=== PATIENT | female | born 1935 | race Caucasian/White ===

== ENCOUNTER 2019-09-25 15:05 | Inpatient (IN) | payer MEDICARE, OTHER ==
[~2019-09-25] VITALS: Ht 167.6 cm; Wt 58.1 kg
[2019-09-25] MEDS ORDERED: AMLO5TAB9 PO (15:30)
[2019-09-25] MEDS ORDERED: QUET25TA PO (15:30)
[2019-09-25] MEDS ORDERED: CEFU500T66 PO (15:30)
[2019-09-25] MEDS ORDERED: DIAZ5TAB4 PO (15:34)
[2019-09-25] MEDS ORDERED: LITH150C PO (15:34)
[2019-09-25] MEDS ORDERED: LEVO150T8 PO (15:34)
[2019-09-25] MEDS ORDERED: ATOR10TA PO (15:34)
[2019-09-25] MEDS ORDERED: FURO20TA4 PO (15:34)
[2019-09-25] MEDS ORDERED: LOSA50TA39 PO (15:34)
--- NOTE | 2019-09-25 15:39 | NUR ---
DR. CARVALHO MADE AWARE OF THE ADMISSION AND WITH ORDERS.
[2019-09-25 16:00] VITALS: BP 102/68
[2019-09-25] MEDS ORDERED: TEMAZEPAM 7.5 MG CAPSULE PO PRN (16:00)
[2019-09-25] MEDS ORDERED: MAGNESIUM HYDROXIDE 30 ML UDC PO PRN (16:00)
[2019-09-25] MEDS ORDERED: MAG HYDROX/AL HYDROX/SIMETH 30 ML UDC PO PRN (16:00)
[2019-09-25] MEDS ORDERED: ACETAMINOPHEN 325 MG TABLET PO PRN (16:00)
[2019-09-25] MEDS ORDERED: BLOOD SUGAR DIAGNOSTIC 1 EACH STRIP IN ONE (16:00)
[2019-09-25] MEDS ORDERED: LORAZEPAM 0.5 MG TABLET PO PRN (16:00)
[2019-09-25 18:43] VITALS: BP 102/68
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
[2019-09-25] MEDS: LITHIUM CARBONATE 150 MG CAPSULE PO SCH (19:24)
--- NOTE | 2019-09-25 19:39 | NUR ---
GPS RN NOTE RECEIVED PATIENT SITTING IN BED. A & O X 2. NO ACUTE DISTRESS, NO C/O PAIN VERBALIZED AT THIS TIME. DENIES SI/HI/AVH AT THIS TIME. WILL CONTINUE TO MONITOR FOR SAFETY & BEHAVIOR.
--- NOTE | 2019-09-25 20:13 | NUR ---
GPS/RN NOTE: PHARMACISTGEORGIANA CALLED TO NOTIFY THAT [facility] IS NOT AVAILABLE. WILL FOLLOW-UP DAVID.
[2019-09-25 20:16] VITALS: BP 120/50
[2019-09-25] MEDS: CEPHALEXIN MONOHYDRATE 500 MG CAPSULE PO SCH (21:46)
[2019-09-25] MEDS: OLANZAPINE 2.5 MG TABLET PO SCH (21:46)
[2019-09-25] MEDS ORDERED: ATORVASTATIN 10 MG TABLET ONE (21:51)
[2019-09-25] MEDS: ATORVASTATIN 10 MG TABLET PO SCH (21:57)
--- NOTE | 2019-09-26 06:48 | NUR ---
GPS RN CLOSING NOTE PATIENT SLEPT 7 HOURS, NO ACUTE DISTRESS NOTED. A & O X 1, CONFUSED. HAD BM X 2 IN BED & TOILET. SAFETY MEASURES IN PLACE. WILL ENDORSE TO AM RN TO COLLECT URINE & STOOL FOR C.DIFF & CONTINUE TO MONITOR FOR SAFETY & BEHAVIOR.
[2019-09-26 07:29] LABS: BASOPHILS # (AUTO) 0.1 /CMM (0.0-0.2); BASOPHILS % (AUTO) 0.6 % (0.0-2.0); EOSINOPHILS % (AUTO) 0.9 % (0.0-6.0); HEMATOCRIT 39 % (33-45); HEMOGLOBIN 12.5 g/dL (11.5-14.8); LYMPHOCYTES # (AUTO) 0.1 /CMM (0.8-4.8); LYMPHOCYTES % (AUTO) 1.2 % (20.0-44.0); MEAN CORPUSCULAR HGB CONC 32 g/dl (31.0-36.0); MEAN CORPUSCULAR VOLUME 94 fL (82-100); MONOCYTES # (AUTO) 0.5 /CMM (0.1-1.30); MONOCYTES % (AUTO) 3.6 % (2.0-12.0); NEUTROPHILS # (AUTO) 11.8 /CMM (1.8-8.9); NEUTROPHILS % (AUTO) 93.7 % (43.0-81.0); PLATELET COUNT (AUTO) 184 /CMM (150-450); RED BLOOD CELL COUNT(AUTO) 4.19 MIL/uL (4.0-5.2); WHITE BLOOD COUNT (AUTO) 12.6 K/uL (4.3-11.0)
[2019-09-26 07:39] LABS: ALANINE AMINOTRANSFERASE 18 U/L (12-78); ALBUMIN 3.4 g/dL (3.4-5.0); ALKALINE PHOSPHATASE 56 U/L (46-116); ASPARTATE AMINOTRANSFERASE 25 U/L (15-37); BILIRUBIN,TOTAL 0.5 mg/dL (0.2-1.0); CALCIUM, SERUM 9.6 mg/dL (8.5-10.1); CARBON DIOXIDE 23 mmol/L (21-32); CHLORIDE 105 mmol/L (98-107); CREATININE 1.7 mg/dL (0.6-1.3); GLUCOSE 147 mg/dL (74-106); POTASSIUM 4.2 mmol/L (3.5-5.1); SODIUM SERUM 140 mmol/L (136-145); TOTAL PROTEIN, SERUM 6.5 g/dL (6.4-8.2); UREA NITROGEN, BLOOD 40 mg/dL (7-18)
[2019-09-26 07:41] LABS: CHOLESTEROL 148 mg/dL (<200); HDL CHOLESTEROL 60 mg/dL (40-60); LDL 68 mg/dL (0-99); TRIGLYCERIDES 106 mg/dL (30-150)
[2019-09-26 08:00] VITALS: BP 90/59
[2019-09-26] MEDS: LEVOTHYROXINE SODIUM 75 MCG TABLET PO SCH (08:47)
[2019-09-26] MEDS: CEPHALEXIN MONOHYDRATE 500 MG CAPSULE PO SCH ×2 (08:47→21:20)
[2019-09-26] MEDS: LITHIUM CARBONATE 150 MG CAPSULE PO SCH ×2 (08:47→16:49)
[2019-09-26] MEDS: LOSARTAN POTASSIUM 50 MG TABLET PO SCH (08:47)
[2019-09-26] MEDS: AMLODIPINE BESYLATE 5 MG TABLET PO SCH (08:48)
[2019-09-26] MEDS: NICOTINE PATCH (14MG) 14 MG PATCH.TD24 TD SCH (08:53)
[2019-09-26] MEDS ORDERED: FUROSEMIDE 20 MG TABLET PO SCH (09:00)
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
--- NOTE | 2019-09-26 12:04 | NUR ---
Family Contact: SW called the pts daughter, Holly ([phone]), but an access code was required that the SW did not have.
--- NOTE | 2019-09-26 14:29 | NUR ---
Initial Discharge Plan: Pt currently resides in her home located at [address] [place] [address]; ([phone]) with her daughter, Holly ([phone]). Per pt, she would like to return to her home. SW will work with the pt and the MD regarding appropriate discharge planning. SW will form a safe and proper discharge.
[2019-09-26] MEDS: POVIDONE-IODINE OINT 28.4 GM TUBE TP SCH (14:33)
[2019-09-26 16:00] VITALS: BP 98/59
--- NOTE | 2019-09-26 16:00 | NUR ---
CARE TRANSFERRED TO DORIE MAGANA FROM REGISTRY
--- NOTE | 2019-09-26 19:10 | NUR ---
GPS RN NOTES RECEIVED PT IN BED AWAKE, NO S/S OR COMPLAINTS OF PAIN AT THIS TIME. RESPIRATIONS EVEN AND UNLABORED WITH NO S/S OF ACUTE DISTRESS OR SOB NOTED. PT A/O X1 . PT DENIES SI/HI AT THIS TIME. SAFETY MEASURES IN PLACE WITH BED IN LOWEST LOCKED POSITION WITH SIDE RAILS UP X2. CALL KHAN WITHIN REACH. WILL CONTINUE TO MONITOR.
[2019-09-26 20:47] VITALS: BP 90/46
[2019-09-26] MEDS: ATORVASTATIN 10 MG TABLET PO SCH (21:20)
[2019-09-26] MEDS: OLANZAPINE 2.5 MG TABLET PO SCH (21:20)
[2019-09-27 06:27] LABS: APPEARANCE,URINE SL CLOUDY (CLEAR); BILIRUBIN,URINE NEGATIVE (NEGATIVE); BLOOD, URINE NEGATIVE Ery/uL (NEGATIVE); COLOR,URINE YELLOW (YELLOW); KETONES,URINE NEGATIVE (NEGATIVE); LEUKOCYTE ESTERASE ,URINE NEGATIVE (NEGATIVE); NITRITE, URINE NEGATIVE (NEGATIVE); PH,URINE 5.5 (5.0-8.0); PROTEIN,URINE NEGATIVE (NEGATIVE); UGLUCOSE NEGATIVE (NEGATIVE); UROBILINOGEN,URINE 0.2 EU/dL (0.2)
--- NOTE | 2019-09-27 07:07 | NUR ---
GPS RN NOTES PT IN BED AWAKE, NO S/S OR COMPLAINTS OF PAIN AT THIS TIME. RESPIRATIONS EVEN AND UNLABORED WITH NO S/S OF ACUTE DISTRESS OR SOB NOTED. PT A/O X1 . PT DENIES SI/HI AT THIS TIME. SAFETY MEASURES IN PLACE WITH BED IN LOWEST LOCKED POSITION WITH SIDE RAILS UP X2. CALL KHAN WITHIN REACH. WILL ENDORSE TO ONCOMING NURSE FOR DWAIN.
[2019-09-27 07:32] LABS: BASOPHILS % (AUTO) 0.4 % (0.0-2.0); EOSINOPHILS % (AUTO) 4.2 % (0.0-6.0); HEMATOCRIT 41 % (33-45); HEMOGLOBIN 13.4 g/dL (11.5-14.8); LYMPHOCYTES # (AUTO) 0.3 /CMM (0.8-4.8); LYMPHOCYTES % (AUTO) 2.2 % (20.0-44.0); MEAN CORPUSCULAR HGB CONC 33 g/dl (31.0-36.0); MEAN CORPUSCULAR VOLUME 93 fL (82-100); MONOCYTES # (AUTO) 0.4 /CMM (0.1-1.30); MONOCYTES % (AUTO) 3.1 % (2.0-12.0); NEUTROPHILS # (AUTO) 10.9 /CMM (1.8-8.9); NEUTROPHILS % (AUTO) 90.1 % (43.0-81.0); PLATELET COUNT (AUTO) 197 /CMM (150-450); RED BLOOD CELL COUNT(AUTO) 4.41 MIL/uL (4.0-5.2); WHITE BLOOD COUNT (AUTO) 12.1 K/uL (4.3-11.0)
[2019-09-27 08:00] VITALS: BP 90/58
[2019-09-27 08:02] LABS: PHOSPHORUS 3.6 mg/dL (2.5-4.9)
[2019-09-27] MEDS: LOSARTAN POTASSIUM 50 MG TABLET PO SCH (09:00)
[2019-09-27] MEDS: AMLODIPINE BESYLATE 5 MG TABLET PO SCH (09:00)
[2019-09-27] MEDS: NICOTINE PATCH (14MG) 14 MG PATCH.TD24 TD SCH (09:35)
[2019-09-27] MEDS: CEPHALEXIN MONOHYDRATE 500 MG CAPSULE PO SCH ×2 (09:36→21:01)
[2019-09-27] MEDS: LITHIUM CARBONATE 150 MG CAPSULE PO SCH (09:36)
[2019-09-27] MEDS: LEVOTHYROXINE SODIUM 75 MCG TABLET PO SCH (09:36)
--- NOTE | 2019-09-27 12:10 | NUR ---
NO BETADINE APPLIED TO RT. [facility] HASN'T SUPPLIED IT.CALLED SEVERAL TIMES.
[2019-09-27 13:30] LABS: CALCIUM, SERUM 9.6 mg/dL (8.5-10.1); CARBON DIOXIDE 21 mmol/L (21-32); CHLORIDE 100 mmol/L (98-107); CREATININE 2.5 mg/dL (0.6-1.3); GLUCOSE 102 mg/dL (74-106); POTASSIUM 4.3 mmol/L (3.5-5.1); SODIUM SERUM 136 mmol/L (136-145); UREA NITROGEN, BLOOD 59 mg/dL (7-18)
[2019-09-27] MEDS: POVIDONE-IODINE OINT 28.4 GM TUBE TP SCH (14:50)
--- NOTE | 2019-09-27 15:48 | NUR ---
STAYING IN ROOM MOST OF DAY.
[2019-09-27 16:00] VITALS: BP 109/59
[2019-09-27 20:17] VITALS: BP 102/52
[2019-09-27] MEDS: ATORVASTATIN 10 MG TABLET PO SCH (21:01)
[2019-09-27] MEDS: OLANZAPINE 2.5 MG TABLET PO SCH (21:01)
[2019-09-28] MEDS: LEVOTHYROXINE SODIUM 75 MCG TABLET PO SCH (07:50)
[2019-09-28 08:00] VITALS: BP 99/79
[2019-09-28] MEDS: LOSARTAN POTASSIUM 50 MG TABLET PO SCH (08:26)
[2019-09-28] MEDS: AMLODIPINE BESYLATE 5 MG TABLET PO SCH (08:26)
[2019-09-28] MEDS: CEPHALEXIN MONOHYDRATE 500 MG CAPSULE PO SCH ×2 (08:41→21:09)
[2019-09-28] MEDS: NICOTINE PATCH (14MG) 14 MG PATCH.TD24 TD SCH (08:41)
[2019-09-28] MEDS: POVIDONE-IODINE OINT 28.4 GM TUBE TP SCH (08:47)
[2019-09-28 09:37] LABS: BASOPHILS % (AUTO) 0.2 % (0.0-2.0); EOSINOPHILS % (AUTO) 9.4 % (0.0-6.0); HEMATOCRIT 40 % (33-45); HEMOGLOBIN 13.1 g/dL (11.5-14.8); LYMPHOCYTES # (AUTO) 0.8 /CMM (0.8-4.8); LYMPHOCYTES % (AUTO) 9.9 % (20.0-44.0); MEAN CORPUSCULAR HGB CONC 33 g/dl (31.0-36.0); MEAN CORPUSCULAR VOLUME 93 fL (82-100); MONOCYTES # (AUTO) 0.4 /CMM (0.1-1.30); MONOCYTES % (AUTO) 5.1 % (2.0-12.0); NEUTROPHILS # (AUTO) 6.2 /CMM (1.8-8.9); NEUTROPHILS % (AUTO) 75.4 % (43.0-81.0); PLATELET COUNT (AUTO) 173 /CMM (150-450); RED BLOOD CELL COUNT(AUTO) 4.33 MIL/uL (4.0-5.2); WHITE BLOOD COUNT (AUTO) 8.2 K/uL (4.3-11.0)
[2019-09-28 10:06] LABS: ALANINE AMINOTRANSFERASE 21 U/L (12-78); ALBUMIN 3.3 g/dL (3.4-5.0); ALKALINE PHOSPHATASE 55 U/L (46-116); ASPARTATE AMINOTRANSFERASE 19 U/L (15-37); BILIRUBIN,TOTAL 0.4 mg/dL (0.2-1.0); CALCIUM, SERUM 9.6 mg/dL (8.5-10.1); CARBON DIOXIDE 26 mmol/L (21-32); CHLORIDE 101 mmol/L (98-107); GLUCOSE 131 mg/dL (74-106); POTASSIUM 3.9 mmol/L (3.5-5.1); SODIUM SERUM 136 mmol/L (136-145); TOTAL PROTEIN, SERUM 6.7 g/dL (6.4-8.2); UREA NITROGEN, BLOOD 60 mg/dL (7-18)
[2019-09-28 16:00] VITALS: BP 121/81
[2019-09-28 20:40] VITALS: BP 160/69
[2019-09-28] MEDS: OLANZAPINE 2.5 MG TABLET PO SCH (21:09)
[2019-09-28] MEDS: ATORVASTATIN 10 MG TABLET PO SCH (21:10)
[2019-09-28 22:51] VITALS: BP 137/59
[2019-09-29 08:00] VITALS: BP 137/58
[2019-09-29 08:12] LABS: CALCIUM, SERUM 10.4 mg/dL (8.5-10.1); CARBON DIOXIDE 25 mmol/L (21-32); CHLORIDE 101 mmol/L (98-107); CREATININE 1.6 mg/dL (0.6-1.3); GLUCOSE 104 mg/dL (74-106); POTASSIUM 3.5 mmol/L (3.5-5.1); SODIUM SERUM 136 mmol/L (136-145); UREA NITROGEN, BLOOD 47 mg/dL (7-18)
[2019-09-29] MEDS: LEVOTHYROXINE SODIUM 75 MCG TABLET PO SCH (08:26)
[2019-09-29] MEDS: CEPHALEXIN MONOHYDRATE 500 MG CAPSULE PO SCH (08:27)
[2019-09-29] MEDS: AMLODIPINE BESYLATE 5 MG TABLET PO SCH (08:27)
[2019-09-29] MEDS: LOSARTAN POTASSIUM 50 MG TABLET PO SCH (08:27)
[2019-09-29] MEDS: POVIDONE-IODINE OINT 28.4 GM TUBE TP SCH (08:27)
[2019-09-29] MEDS: NICOTINE PATCH (14MG) 14 MG PATCH.TD24 TD SCH (08:27)
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
--- NOTE | 2019-09-29 12:08 | NUR ---
Family Contact: SW called the pts sister, Jannie ([phone]), but the voicemail mailbox was not set up so the SW was unable to leave a message.
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
[2019-09-29 13:47] LABS: BASOPHILS % (AUTO) 0.7 % (0.0-2.0); HEMATOCRIT 42 % (33-45); HEMOGLOBIN 13.6 g/dL (11.5-14.8); LYMPHOCYTES # (AUTO) 0.9 /CMM (0.8-4.8); LYMPHOCYTES % (AUTO) 13.9 % (20.0-44.0); MEAN CORPUSCULAR HGB CONC 33 g/dl (31.0-36.0); MEAN CORPUSCULAR VOLUME 93 fL (82-100); MONOCYTES # (AUTO) 0.4 /CMM (0.1-1.30); MONOCYTES % (AUTO) 6.2 % (2.0-12.0); NEUTROPHILS # (AUTO) 4.4 /CMM (1.8-8.9); NEUTROPHILS % (AUTO) 70.2 % (43.0-81.0); PLATELET COUNT (AUTO) 181 /CMM (150-450); WHITE BLOOD COUNT (AUTO) 6.2 K/uL (4.3-11.0)
[2019-09-29] MEDS: LEVOFLOXACIN (500MG) 500 MG TABLET PO SCH (15:55)
[2019-09-29 16:04] VITALS: BP 138/63
--- NOTE | 2019-09-29 16:06 | NUR ---
GROUP NOTE: SW encouraged pt to attend group on this present day discussing "discharge planning." Pt refused to attend stating she was on the phone. Pt was laying in bed with her legs crossed talking on the phone.
--- NOTE | 2019-09-29 16:17 | NUR ---
APS Contact: ADRIEL faxed an APS SOC 341 Form with attention to Earl Vasques was faxed to: [phone].
[2019-09-29] MEDS ORDERED: FIXODENT 1 EA TUBE MM ONE (16:30)
--- NOTE | 2019-09-29 19:50 | NUR ---
PT WAS RECEIVED FR THE MORNING SHIFT, PT IS IN THE HALLWAY WHEN RECEIVED, NO S/S AND C/O OF PAIN AND DISCOMFORT, CONTINUE TO MONITOR PT THROUGHOUT THE SHIFTY.
[2019-09-29 20:20] VITALS: BP 137/55
[2019-09-29] MEDS: OLANZAPINE 2.5 MG TABLET PO SCH (21:46)
[2019-09-29] MEDS: ATORVASTATIN 10 MG TABLET PO SCH (21:46)
[2019-09-30] MEDS: LEVOTHYROXINE SODIUM 75 MCG TABLET PO SCH (07:48)
[2019-09-30 08:00] VITALS: BP 156/57
[2019-09-30] MEDS: LOSARTAN POTASSIUM 50 MG TABLET PO SCH (08:09)
[2019-09-30] MEDS: AMLODIPINE BESYLATE 5 MG TABLET PO SCH (08:10)
[2019-09-30] MEDS: NICOTINE PATCH (14MG) 14 MG PATCH.TD24 TD SCH (08:15)
[2019-09-30] MEDS: POVIDONE-IODINE OINT 28.4 GM TUBE TP SCH (08:48)
[2019-09-30 09:07] LABS: *SPE ALBUMIN 3.3 g/dL (2.9-4.4); *SPE ALPHA-1-GLOBULIN 0.3 g/dL (0.0-0.4); *SPE GLOBULIN, TOTAL 3.3 g/dL (2.2-3.9); *SPE M-SPIKE Not Observed g/dL (Not Observed); *SPEGAMMA GLOBULIN 0.9 g/dL (0.4-1.8)
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
[2019-09-30 12:06] LABS: PTH, INTACT 135 pg/mL (15-65)
[2019-09-30 14:34] LABS: APPEARANCE,URINE CLEAR (CLEAR); BILIRUBIN,URINE NEGATIVE (NEGATIVE); BLOOD, URINE NEGATIVE Ery/uL (NEGATIVE); COLOR,URINE YELLOW (YELLOW); KETONES,URINE NEGATIVE (NEGATIVE); LEUKOCYTE ESTERASE ,URINE NEGATIVE (NEGATIVE); NITRITE, URINE NEGATIVE (NEGATIVE); PH,URINE 5.5 (5.0-8.0); PROTEIN,URINE NEGATIVE (NEGATIVE); UGLUCOSE NEGATIVE (NEGATIVE); UROBILINOGEN,URINE 0.2 EU/dL (0.2)
[2019-09-30 14:45] LABS: CREATININE, URINE 99.3 MG/DL (30.0-125.0); URINE TOTAL PROTEIN 27.4 mg/dL (0-11.9)
[2019-09-30 15:03] LABS: EOSINOPHIL,URINE Few
[2019-09-30] MEDS: LEVOFLOXACIN (500MG) 500 MG TABLET PO SCH (15:45)
[2019-09-30 16:00] VITALS: BP 107/51
[2019-09-30 20:24] VITALS: BP 133/53
[2019-09-30] MEDS: OLANZAPINE 2.5 MG TABLET PO SCH (21:17)
[2019-09-30] MEDS: ATORVASTATIN 10 MG TABLET PO SCH (21:17)
[2019-10-01] MEDS: LEVOTHYROXINE SODIUM 75 MCG TABLET PO SCH (07:51)
[2019-10-01 08:00] VITALS: BP 114/65
[2019-10-01] MEDS: LOSARTAN POTASSIUM 50 MG TABLET PO SCH (08:55)
[2019-10-01] MEDS: AMLODIPINE BESYLATE 5 MG TABLET PO SCH (08:56)
[2019-10-01] MEDS: NICOTINE PATCH (14MG) 14 MG PATCH.TD24 TD SCH (08:57)
[2019-10-01] MEDS: POVIDONE-IODINE OINT 28.4 GM TUBE TP SCH (09:05)
[2019-10-01] MEDS: LEVOFLOXACIN (500MG) 500 MG TABLET PO SCH (15:19)
[2019-10-01 16:00] VITALS: BP 149/52
[2019-10-01 20:07] VITALS: BP 119/50
[2019-10-01] MEDS: OLANZAPINE 2.5 MG TABLET PO SCH (21:06)
[2019-10-01] MEDS: ATORVASTATIN 10 MG TABLET PO SCH (21:07)
[2019-10-01 22:00] VITALS: BP 127/63
[2019-10-02 08:00] VITALS: BP 119/59
[2019-10-02] MEDS: NICOTINE PATCH (14MG) 14 MG PATCH.TD24 TD SCH (08:07)
[2019-10-02] MEDS: AMLODIPINE BESYLATE 5 MG TABLET PO SCH (08:08)
[2019-10-02] MEDS: LEVOTHYROXINE SODIUM 75 MCG TABLET PO SCH (08:08)
[2019-10-02] MEDS: LOSARTAN POTASSIUM 50 MG TABLET PO SCH (08:08)
[2019-10-02] MEDS: POVIDONE-IODINE OINT 28.4 GM TUBE TP SCH (08:14)
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
[2019-10-02 16:00] VITALS: BP 104/54
[2019-10-02] MEDS ORDERED: FIXODENT 1 EA TUBE MM PRN (18:00)
--- NOTE | 2019-10-02 19:57 | NUR ---
GPS/RN NOTE: RESTING IN BED, QUIET, COMFORTABLE. CONFUSED, A/O X1. NO ACUTE DISTRESSN OTED. WILL MONITOR FOR SAFETY AND BEHAVIOR.
[2019-10-02 20:29] VITALS: BP 105/56
[2019-10-02] MEDS: OLANZAPINE 2.5 MG TABLET PO SCH (21:12)
[2019-10-02] MEDS: ATORVASTATIN 10 MG TABLET PO SCH (21:12)
[2019-10-03 07:53] LABS: BASOPHILS % (AUTO) 0.4 % (0.0-2.0); EOSINOPHILS % (AUTO) 6.1 % (0.0-6.0); HEMATOCRIT 37 % (33-45); HEMOGLOBIN 12.2 g/dL (11.5-14.8); LYMPHOCYTES # (AUTO) 2.2 /CMM (0.8-4.8); LYMPHOCYTES % (AUTO) 30.5 % (20.0-44.0); MEAN CORPUSCULAR HGB CONC 33 g/dl (31.0-36.0); MEAN CORPUSCULAR VOLUME 92 fL (82-100); MONOCYTES # (AUTO) 0.6 /CMM (0.1-1.30); MONOCYTES % (AUTO) 8.5 % (2.0-12.0); NEUTROPHILS # (AUTO) 3.9 /CMM (1.8-8.9); NEUTROPHILS % (AUTO) 54.5 % (43.0-81.0); PLATELET COUNT (AUTO) 191 /CMM (150-450); RED BLOOD CELL COUNT(AUTO) 4.07 MIL/uL (4.0-5.2); WHITE BLOOD COUNT (AUTO) 7.2 K/uL (4.3-11.0)
[2019-10-03 07:58] LABS: ALANINE AMINOTRANSFERASE 20 U/L (12-78); ALBUMIN 3.2 g/dL (3.4-5.0); ALKALINE PHOSPHATASE 64 U/L (46-116); ASPARTATE AMINOTRANSFERASE 16 U/L (15-37); BILIRUBIN,TOTAL 0.4 mg/dL (0.2-1.0); CALCIUM, SERUM 9.4 mg/dL (8.5-10.1); CARBON DIOXIDE 26 mmol/L (21-32); CHLORIDE 106 mmol/L (98-107); CREATININE 1.4 mg/dL (0.6-1.3); GLUCOSE 114 mg/dL (74-106); MAGNESIUM 2.1 mg/dL (1.8-2.4); PHOSPHORUS 2.8 mg/dL (2.5-4.9); SODIUM SERUM 140 mmol/L (136-145); TOTAL PROTEIN, SERUM 6.6 g/dL (6.4-8.2); UREA NITROGEN, BLOOD 43 mg/dL (7-18)
[2019-10-03 08:00] VITALS: BP 117/58
[2019-10-03] MEDS: LEVOTHYROXINE SODIUM 75 MCG TABLET PO SCH (09:13)
[2019-10-03] MEDS: LOSARTAN POTASSIUM 50 MG TABLET PO SCH (09:13)
[2019-10-03] MEDS: AMLODIPINE BESYLATE 5 MG TABLET PO SCH (09:14)
[2019-10-03] MEDS: POVIDONE-IODINE OINT 28.4 GM TUBE TP SCH (09:15)
[2019-10-03] MEDS: NICOTINE PATCH (14MG) 14 MG PATCH.TD24 TD SCH (09:15)
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
[2019-10-03 16:00] VITALS: BP 136/52
--- NOTE | 2019-10-03 19:57 | NUR ---
GPS/RN NOTE: RECEIVED PATIENT SLEEPING, RISE AND FALL OF CHEST NOTED, BREATHING PATTERN NON-LABORED. NO APPARENT DISTRESS NOTED. WILL MONITOR Q 15 MINS. FOR SAFETY AND BEHAVIOR.
[2019-10-03 20:55] VITALS: BP 115/36
[2019-10-03] MEDS: OLANZAPINE 2.5 MG TABLET PO SCH (21:39)
[2019-10-03] MEDS: ATORVASTATIN 10 MG TABLET PO SCH (21:39)
[2019-10-04 05:25] VITALS: BP 134/49
[2019-10-04 08:00] VITALS: BP 141/59
[2019-10-04] MEDS: NICOTINE PATCH (14MG) 14 MG PATCH.TD24 TD SCH (09:00)
[2019-10-04] MEDS: LEVOTHYROXINE SODIUM 75 MCG TABLET PO SCH (09:41)
[2019-10-04] MEDS: LOSARTAN POTASSIUM 50 MG TABLET PO SCH (09:41)
[2019-10-04] MEDS: AMLODIPINE BESYLATE 5 MG TABLET PO SCH (09:41)
[2019-10-04] MEDS: POVIDONE-IODINE OINT 28.4 GM TUBE TP SCH (10:07)
[2019-10-04 16:00] VITALS: BP 96/60
[2019-10-04 20:06] VITALS: BP 92/39
--- NOTE | 2019-10-04 20:15 | NUR ---
GPS/RN NOTE: OFFERED FLUIDS 235 ML OF ENSURE.
--- NOTE | 2019-10-04 20:35 | NUR ---
GPS/RN NOTE: OFFERED 240 ML OF WATER.
[2019-10-04] MEDS: ATORVASTATIN 10 MG TABLET PO SCH (21:18)
[2019-10-04] MEDS: OLANZAPINE 2.5 MG TABLET PO SCH (21:18)
--- NOTE | 2019-10-04 21:40 | NUR ---
GPS/RN NOTE: LATEST BP 85/32, PULSE 53. ASYMPTOMATIC, OFFERED FLUIDS HAD ANOTHER 240 ML WATER. WILL CONTINUE TO MONITOR.
[2019-10-05 00:50] VITALS: BP 116/45
[2019-10-05 05:51] VITALS: BP 94/38
--- NOTE | 2019-10-05 05:52 | NUR ---
GPS/RN NOTE: LATEST BP 94/38, PULSE 52. PATIENT IS ASYMPTOMATIC, DENIES ANY CHEST PAIN. UP WITH ASSISTANCE DUE TO LOW BP AND PREVENT FALL INCIDENT. BED ALARM ON. INSTRUCTED PATIENT TO CALL FOR ANY ASSISTANCE.WILL CONTINUE TO MONITOR
[2019-10-05 08:00] VITALS: BP 115/56
[2019-10-05] MEDS: LOSARTAN POTASSIUM 50 MG TABLET PO SCH (08:16)
[2019-10-05] MEDS: LEVOTHYROXINE SODIUM 75 MCG TABLET PO SCH (08:16)
[2019-10-05] MEDS: NICOTINE PATCH (14MG) 14 MG PATCH.TD24 TD SCH (08:17)
[2019-10-05] MEDS: AMLODIPINE BESYLATE 5 MG TABLET PO SCH (08:17)
[2019-10-05] MEDS: POVIDONE-IODINE OINT 28.4 GM TUBE TP SCH (09:19)
[2019-10-05 16:00] VITALS: BP 137/55
[2019-10-05 19:55] VITALS: BP 126/49
[2019-10-05] MEDS: ATORVASTATIN 10 MG TABLET PO SCH (21:27)
[2019-10-05] MEDS: OLANZAPINE 2.5 MG TABLET PO SCH (21:27)
[2019-10-06 08:00] VITALS: BP 124/85
[2019-10-06] MEDS: LEVOTHYROXINE SODIUM 75 MCG TABLET PO SCH (08:12)
[2019-10-06] MEDS: NICOTINE PATCH (14MG) 14 MG PATCH.TD24 TD SCH (08:13)
[2019-10-06] MEDS: LOSARTAN POTASSIUM 50 MG TABLET PO SCH (08:13)
[2019-10-06] MEDS: AMLODIPINE BESYLATE 5 MG TABLET PO SCH (08:13)
[2019-10-06] MEDS: POVIDONE-IODINE OINT 28.4 GM TUBE TP SCH (08:14)
--- NOTE | 2019-10-06 10:56 | NUR ---
Family Contact: SW called the pts daughter, Holly ([phone]), and informed her that she received her voicemail message. Pts daughter stated that she does not think the pt is appropriate to be discharged home and recommended a transitional care facility called [facility]. SW stated that she will contact the facility.
--- NOTE | 2019-10-06 12:22 | NUR ---
Facility Contact: SW called [facility] and spoke to Nitza who stated that she would like the SW to fax a referral to [phone]. ADRIEL faxed the referral.
--- NOTE | 2019-10-06 13:49 | NUR ---
APS Contact: ADRIEL returned the call from Nakul Valadez ([phone]), APS Worker, and left her a voicemail stating that the pt is not being discharged yet and that the SW would inform her when she does.
--- NOTE | 2019-10-06 13:53 | NUR ---
Family Contact: SW called the pts daughter, Christin ([phone]), and informed her that the SW sent a referral to [facility] because the pt does not seem to have much support in her home. Pts daughter stated that she approves of this plan.
--- NOTE | 2019-10-06 15:07 | NUR ---
Group Activity Goal: Patient will attend group today at 1:00 pm in the activities room and participate and/or actively listen to peers and be respectful. Intervention: SW facilitated group session with patients regarding Holiday Season Sensory activity. SW explored what tastes, smells, sounds, and sights come to mind when thinking about the season and gratefulness. SW explored 1 good holiday memory, 1 thing you are grateful for, 1 thing you will let go of, and 1 thing you want to improve. Response: Patient was agreeable to participating in group session. The patient was pleasant, made appropriate eye contact and was supportive to her peers. The patient shared some great memories with the group discussing food, family traditions and that she is grateful for her sister and a new day. The pt. stated she is grateful for the group a sit has helped her remember goof times in her life.
[2019-10-06 16:00] VITALS: BP 120/57
[2019-10-06 20:18] VITALS: BP 110/48
[2019-10-06] MEDS: OLANZAPINE 2.5 MG TABLET PO SCH (21:29)
[2019-10-06] MEDS: ATORVASTATIN 10 MG TABLET PO SCH (21:29)
[2019-10-07 08:00] VITALS: BP 107/56
[2019-10-07] MEDS: NICOTINE PATCH (14MG) 14 MG PATCH.TD24 TD SCH (08:45)
[2019-10-07] MEDS: LEVOTHYROXINE SODIUM 75 MCG TABLET PO SCH (08:45)
[2019-10-07] MEDS: LOSARTAN POTASSIUM 50 MG TABLET PO SCH (08:45)
[2019-10-07 08:46] VITALS: BP 107/50
[2019-10-07] MEDS: POVIDONE-IODINE OINT 28.4 GM TUBE TP SCH (08:46)
[2019-10-07] MEDS: AMLODIPINE BESYLATE 5 MG TABLET PO SCH (08:46)
--- NOTE | 2019-10-07 08:47 | NUR ---
SNF Referral: ADRIEL faxed a residential facility (SNF) referral to [facility] with attention to Bisi to the fax number: [phone]
--- NOTE | 2019-10-07 08:55 | NUR ---
Facility Contact: Nitza from [facility] contacted the SW and stated that the pt cannot be accepted to their facility because they are not equipped to handle psychiatric patients. She stated that their [facility] will most likely not be able to meet the needs of the pt and that the SW should try to find placement in the [place].
--- NOTE | 2019-10-07 11:52 | NUR ---
SNF Contact: Jaida ([phone]) from [facility] contacted the SW and stated that the pt was not accepted due to her psychiatric behaviors.
--- NOTE | 2019-10-07 11:53 | NUR ---
SNF Referral: faxed referral to [facility] with attention to Sylvia to the fax number: [phone].
--- NOTE | 2019-10-07 11:54 | NUR ---
SNF Contact: Elvia ([phone]) from [facility] contacted the SW and stated that the pt was accepted to their facility.
--- NOTE | 2019-10-07 11:55 | NUR ---
Family Contact: SW called the pts daughter, Christin ([phone]), and left her a voicemail stating that the SW needs to speak to her regarding the pts discharge plan because she did not get accepted to the transitional care but got accepted to a different facility.
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
--- NOTE | 2019-10-07 15:59 | NUR ---
Discharge Note: Pt was discharged to [facility] ([facility]) [place] at [address] [place] [address]; ([phone]). Pt was transported via [facility] at 2PM. Pts daughter, Christin ([phone]), was informed of the placement. Upon discharge, the pt appeared to be in a euthymic mood and presented with a calm affect. Pt denied both suicidal and homicidal ideation as well as auditory and visual hallucinations. Pt will continue to be under the care of her psychiatrist, Dr. Oliveira, [place] [address] [place] [address]; and her corrugator supervisor, Dr. Lamb, located at [address] [place] [address]; .
== END 2019-10-07 15:10 | DRG 885 ==
LOC: GPS 15:05
PROVIDERS: ADMIT Psychiatry & Neurology Psychosomatic Medicine; ATTEND Registered Nurse
PROC: 0HBRXZZ Excision of Toe Nail, External Approach (ICD-10-PCS; principal; 2019-09-26)
DX: F25.0 Schizoaffective disorder, bipolar type (principal); F01.50 Vascular dementia, unspecified severity, without behavioral disturbance, psychotic disturbance, mood disturbance, and anxiety; N17.0 Acute kidney failure with tubular necrosis; N18.9 Chronic kidney disease, unspecified; I13.0 Hypertensive heart and chronic kidney disease with heart failure and stage 1 through stage 4 chronic kidney disease, or unspecified chronic kidney disease; E44.1 Mild protein-calorie malnutrition; N39.0 Urinary tract infection, site not specified; I50.9 Heart failure, unspecified; E03.9 Hypothyroidism, unspecified; Z73.6 Limitation of activities due to disability; E78.5 Hyperlipidemia, unspecified; L60.2 Onychogryphosis; L60.0 Ingrowing nail; F17.210 Nicotine dependence, cigarettes, uncomplicated; M79.672 Pain in left foot; M79.671 Pain in right foot; D72.829 Elevated white blood cell count, unspecified; E21.3 Hyperparathyroidism, unspecified
CPT/HCPCS: 36415; 76770-TC; 80048-TC; 80053-TC; 80061-TC; 81000-TC; 82550-TC; 82570-TC; 82962-TC; 83735-TC; 83970; 84100-TC; 84155; 84155-TC; 84165; 84300-TC; 85025-TC; 87081-TC; 97116-TC; 97530-TC